=== PATIENT | female | born 1985 | race Caucasian/White ===

== ENCOUNTER 2022-07-24 15:32 | Emergency (ER) | payer BC, OTHER ==
[~2022-07-24] VITALS: Ht 162.6 cm; Wt 75.0 kg
[2022-07-24 15:45] VITALS: BP 111/74
[2022-07-24 16:17] LABS: BASOPHILS # (AUTO) 0.1 X10'3 (0-0.2); BASOPHILS % (AUTO) 0.9 % (0-1); EOSINOPHILS # (AUTO) 0.2 X10'3 (0-0.9); EOSINOPHILS % (AUTO) 2.6 % (0-6); HEMATOCRIT 37.8 % (35.0-45.0); HEMOGLOBIN 12.9 g/dl (12.0-16.0); LYMPHOCYTES # (AUTO) 1.7 X10'3 (1.1-4.8); LYMPHOCYTES % (AUTO) 26.8 % (21-51); MEAN CORPUSCULAR HEMOGLOBIN 31.6 PG (27.0-31.0); MEAN CORPUSCULAR HGB CONC 34.2 g/dL (33.0-36.5); MEAN CORPUSCULAR VOLUME 92.3 FL (78-98); MEAN PLATELET VOLUME 7.7 FL (7.4-10.4); MONOCYTES # (AUTO) 0.5 X10'3 (0-0.9); MONOCYTES % (AUTO) 7.7 % (2-12); NEUTROPHILS # (AUTO) 3.9 X10'3 (1.8-7.7); PLATELET COUNT 288 X10'3 (140-440); RED CELL DISTRIBUTION WIDTH 12.7 % (11.5-14.5); WHITE BLOOD COUNT 6.2 X10'3 (4.5-11.0)
[2022-07-24 16:33] LABS: ALANINE AMINOTRANSFERASE 42 U/L (12-78); ALBUMIN/GLOBULIN RATIO 1.2 (1.1-1.5); ALKALINE PHOSPHATASE 64 IU/L (46-116); ANION GAP 8 (8-16); ASPARTATE AMINO TRANSFERASE 23 U/L (10-37); BLOOD UREA NITROGEN 17 MG/DL (7-18); BUN/CREATININE RATIO 22.4 (10.0-20.0); CALCIUM 9.4 MG/DL (8.5-10.1); CHLORIDE 103 MMOL/L (99-107); CREATININE 0.76 MG/DL (0.40-0.90); GLUCOSE 103 MG/DL (70-104); POTASSIUM 3.7 MMOL/L (3.5-5.1); SODIUM 139 MMOL/L (135-145); TOTAL CARBON DIOXIDE 27.8 MMOL/L (24-32); TOTAL PROTEIN 7.3 G/DL (6.4-8.2); eGFR 85 ML/MIN
[2022-07-24] MEDS ORDERED: MODA200T48 PO ×4 (18:33→18:41)
[2022-07-24] MEDS ORDERED: CLIN130C TOP (18:33)
[2022-07-24] MEDS ORDERED: BUTA-281 PO (18:33)
== END 2022-07-24 19:28 | disposition home or self-care (01) ==
LOC: ER 15:34 → EEVIPCON 15:34 → ER 19:28
DX: G47.00 Insomnia, unspecified (principal); R53.83 Other fatigue; G43.909 Migraine, unspecified, not intractable, without status migrainosus; Z88.2 Allergy status to sulfonamides
CPT/HCPCS: 36415; 80053; 84443; 85025; 99283

== ENCOUNTER 2023-05-28 13:57 | Outpatient (CLI) | payer BC ==
[~2023-05-28 13:57] MED LIST: BUTA-245 PO; CLIN130C TOP; MODA200T48 PO
[2023-05-28] MEDS ORDERED: GADOTERATE MEGLUMINE 7.5 MMOL/15 ML VIAL IV ONE (17:50)
== END 2023-05-28 23:59 | disposition home or self-care (01) ==
LOC: RAD 13:57
PROVIDERS: ATTEND Nurse Practitioner
DX: G43.719 Chronic migraine without aura, intractable, without status migrainosus (principal)
CPT/HCPCS: 70553; A9575

== ENCOUNTER 2023-08-09 05:26 | Emergency (ER) | payer BC ==
[~2023-08-09] VITALS: Ht 162.6 cm; Wt 77.3 kg
[2023-08-09 05:27] VITALS: TEMP 98.5
[2023-08-09] MEDS: acetaminophen 325mg tablet PO ONE (06:14)
[2023-08-09] MEDS: ketorolac trometh. 30mg/ml inj. IM ONE (06:17)
[2023-08-09] MEDS ORDERED: ACET-3068 PO (07:17)
[2023-08-09] MEDS: HYDROcodone/acetaminophen 5mg/325mg tablet PO ONE (07:27)
[2023-08-09 07:31] VITALS: BP 129/84; PULSE 78; RESP 18; O2SAT 99
== END 2023-08-09 07:32 | disposition home or self-care (01) ==
LOC: ER 05:27
DX: G89.29 Other chronic pain (principal); M79.672 Pain in left foot; G43.909 Migraine, unspecified, not intractable, without status migrainosus; Z88.2 Allergy status to sulfonamides; Z88.1 Allergy status to other antibiotic agents; Z79.899 Other long term (current) drug therapy; Z79.2 Long term (current) use of antibiotics
CPT/HCPCS: 96372; 99283; J1885

== ENCOUNTER 2024-04-20 18:21 | Emergency (ER) | payer BC ==
[~2024-04-20] VITALS: Ht 162.6 cm; Wt 77.3 kg
[2024-04-20 18:32] VITALS: TEMP 97.8
[2024-04-20] MEDS: acetaminophen 1,000mg/100ml IV 100 ML IV ONE (18:51)
[2024-04-20] MEDS: normal saline 1000ml 1,000 ML IV ONE (18:52)
[2024-04-20] MEDS: ketorolac trometh 15mg/ml vial 15 MG/ML ML IV ONE (18:52)
[2024-04-20] MEDS: proCHLORperazine 10 MG/2 ml inj IV ONE (18:53)
[2024-04-20] MEDS: metoclopramide 5 mg/ml inj IV ONE (19:32)
[2024-04-20] MEDS: haloperidol lactate 5mg/ml inj IM ONE (19:32)
[2024-04-20] MEDS: diphenhydrAMINE 50 mg/ml inj IV ONE (19:33)
[2024-04-20 19:53] VITALS: BP 122/75; PULSE 90; RESP 16; O2SAT 99
[2024-04-20] MEDS ORDERED: PROC-8 PO (19:53)
[2024-04-20] MEDS ORDERED: ONDA-245 PO (19:53)
== END 2024-04-20 20:00 | disposition home or self-care (01) ==
LOC: ER 18:22
DX: G43.909 Migraine, unspecified, not intractable, without status migrainosus (principal); Z88.1 Allergy status to other antibiotic agents; Z88.2 Allergy status to sulfonamides; Z98.890 Other specified postprocedural states
CPT/HCPCS: 96365; 96372; 96375; 99284; J0131; J0780; J1200; J1630; J1885; J2765; J7030

== ENCOUNTER 2024-09-17 09:52 | Outpatient (CLI) | payer BC ==
[~2024-09-17 09:52] MED LIST changes: +ONDA-245 PO; +PROC-8 PO
[2024-09-18 13:12] LABS: ESTRADIOL 197.0 pg/mL (.); FSH, SERUM 7.2 mIU/mL (.); LUTEINIZING HORMONE 17.5 mIU/mL (.); PROGESTERONE <0.1 ng/mL (.)
== END 2024-09-17 23:59 | disposition home or self-care (01) ==
LOC: LAB 09:52
PROVIDERS: ATTEND Nurse Practitioner Family
DX: N92.6 Irregular menstruation, unspecified (principal); G43.719 Chronic migraine without aura, intractable, without status migrainosus
CPT/HCPCS: 36415; 82670; 83001; 83002; 84144; 84402; 84403; 84439; 84443